=== PATIENT | female | born 2000 | race African-American/Black ===

== ENCOUNTER 2023-10-26 05:11 | Emergency (ER) | payer OTHER ==
[~2023-10-26] VITALS: Ht 152.4 cm; Wt 43.0 kg
[2023-10-26 05:19] VITALS: PULSE 80
[2023-10-26 05:23] VITALS: BP 117/76; RESP 16; TEMP 98.5; O2SAT 100
[2023-10-26] MEDS ORDERED: FLUT9.9S BOTHNSTRLS (06:32)
== END 2023-10-26 07:36 | disposition home or self-care (01) ==
LOC: ER 05:11
DX: H92.03 Otalgia, bilateral (principal); J32.8 Other chronic sinusitis
CPT/HCPCS: 99282

== ENCOUNTER 2024-02-29 00:14 | Emergency (ER) | payer OTHER ==
[~2024-02-29] VITALS: Ht 152.4 cm; Wt 40.0 kg
[~2024-02-29 00:14] MED LIST: FLUT9.9S BOTHNSTRLS
[2024-02-29 00:34] VITALS: BP 114/79; TEMP 98; O2SAT 99
[2024-02-29 00:36] VITALS: PULSE 80; RESP 16; O2SAT 98
== END 2024-02-29 03:04 | disposition left against medical advice (07) ==
LOC: ER 00:14
DX: M79.604 Pain in right leg (principal); Z53.21 Procedure and treatment not carried out due to patient leaving prior to being seen by health care provider